=== PATIENT | male | born 1935 | race Caucasian/White ===

== ENCOUNTER 2018-02-12 12:11 | Outpatient (CLI) | payer MEDICARE ==
--- NOTE | 2018-02-12 14:18 | RAD ---
TWO VIEW CHEST: History: Chronic . Comparison: None. FINDINGS: Interstitial markings are upper normal. Heart size is normal. Vascular markings normal. Blunting of C P angles probably represents chronic pleural reaction. AICD leads are noted. No evidence of infiltrat e. Osseous structures are unremarkable with mild degenerative changes in the spine and shoulders. IMPRESSION: No evidence of acute process. Interstitial markings are upper normal. POS: [facility]
== END 2018-02-12 12:12 | disposition home or self-care (01) ==
LOC: BICRAD 12:11
PROVIDERS: ATTEND Nurse Practitioner
DX: Z51.81 Encounter for therapeutic drug level monitoring (principal); Z79.899 Other long term (current) drug therapy
CPT/HCPCS: 36415; 71046; 84439; 84443